=== PATIENT | female | born 1980 | race Caucasian/White ===

== ENCOUNTER → 2018-05-15 | Outpatient (CLI) | payer OTHER | END | disposition home or self-care (01) | LOC: KCIC CT 14:31 | DX: S06.0X9D Concussion with loss of consciousness of unspecified duration, subsequent encounter (principal); X58.XXXD Exposure to other specified factors, subsequent encounter | CPT/HCPCS: 70450 ==

== ENCOUNTER → 2018-06-30 | Outpatient (CLI) | payer OTHER | END | disposition home or self-care (01) | LOC: KCIC MRI 15:16 | DX: M54.2 Cervicalgia (principal); R51 Headache | CPT/HCPCS: 70551; 72141 ==

== ENCOUNTER → 2021-04-18 | Outpatient (CLI) | payer OTHER ==
[~2021-04-18] MED LIST: ANTI INFLAMATORY; BUTA1CAP57 PO; CALC500T54 PO; TRAM50TA PO
--- NOTE | 2021-04-18 13:08 | PDOC1 ---
INITIAL PAIN CONSULT DATE OF SERVICE: DOS: DATE: 04/18/21 TIME: 13:02 CHIEF COMPLAINT: Chief Complaint: Low back bilateral lower extremity pain HISTORY OF PRESENT ILLNESS: 41-year-old female presents history of pain in the low back bilateral lower extremities after lifting a heavy object at work February 14, 2021. Patient reports he lifted a heavy tray at work turned is admitted lifting to walk and felt a sharp pain in her low back this is become more noticeable over the next few days following the injury now is in the low back and bilateral lower extremities radiating the posterior gluteus posterior thighs posterior calves at times mostly in the back and hips and thighs. Patient reports is worse with walking standing changing positions describes as constant throbbing and shooting radiating worse with standing and walking is burning and aching the low back patient has had physical therapy and is currently undergoing physical therapy and has about 2 weeks left with this patient also said chiropractic treatment which was not significant helpful with the therapy was better at decreasing the pain but only moderately. Patient is taking tramadol which does decrease the pain by about 20% as well. Patient is been taking [id number] ibuprofen as well as Tylenol which also helps but only by about 20 to 30%. Patient reports her disability rating 0-10 10 being the worst is a 6 with family home responsibilities 8 with recreation for social activity 9 with occupation 7 with sexual behavior for self-care and life support activities. Patient did have plain films of the lumbar spine which were essentially normal has MRI scan scheduled for the first week of May. Patient reports no loss of motor function but easy fatigability of the lower extremities with standing and walking. Patient continues to work and is working 50+ hours per week. PAST MEDICAL HISTORY: PMH: No major medical problems or conditions she is aware of PREVIOUS SURGERIES: Past Surgical Hx: Hysterectomy 2018 CURRENT MEDICATIONS: Current Meds: Active Scripts Medications Dose Route/Sig Max Daily Dose Days Date Category Kqmrmu-Mchedflo-Ihtc 50-300-40 (Butalb/Acetaminophen/Caffeine) 1 Each Capsule 1 Each PO Q6-8HRS PRN 04/18/21 Reported [anti-inflamatory] PRN 04/18/21 Reported Calcium (Calcium Carbonate) 500 Mg Tab.chew 1 Tab PO DAILY 30 04/18/21 Reported Tramadol Hcl 50 Mg Tablet 50 Mg PO DAILY PRN 04/18/21 Reported ALLERGIES; Allergies: Coded Allergies: Penicillins (Verified Allergy, Severe, Anaphylaxis, 04/18/21) FAMILY HISTORY: Family Hx: No major medical problems or conditions that she is aware of. SOCIAL HISTORY: Social Hx: Patient does not emir alcohol smokes vapor cigarettes, uses marijuana once or twice a month patient is single lives locally in [place], [place] has 1 child living at home works as a local banquet manager. REVIEW OF SYSTEMS: ROS: Positive for those items mentioned in history of present illness, all systems ar e reviewed, otherwise negative ,and are complete full and well-documented on patient's chart. PHYSICAL EXAM: VS: Blood pressure is 109/72 pulse 75 respirations 18 temperature is 98.6 F height is 5 foot 1 his weight is 107 pounds PE: PHYSICAL EXAMINATION: GENERAL: The patient is awake, alert, oriented, appropriate, very pleasant demeanor HEENT: Shows normocephalic, atraumatic. Extraocular movements are intact and symmetrical. Oral cavity: Mucous membranes moist and pink. Dentition is intact. NECK: Shows anterior throat supple without palpable lymphadenopathy noted. Swallow reflex symmetrical. CHEST: Shows normal on inspection. Breath sounds are clear bilaterally, no rales rhonchi wheezes auscultated. HEART: Shows S1, S2 clear. No murmurs auscultated. ABDOMEN: Soft, nontender, nondistended, flat. No palpable organomegaly is noted. No rebound or guarding demonstrated. BACK: Shows spine grossly in the midline. Normal-appearing cervical lordotic cu rvature. There is normal-appearing thoracic kyphosis, some minor flattening of the lumbar lordotic curvature. Lumbar paraspinous muscles show symmetrical on inspection, on palpation shows some moderate tenderness diffusely throughout the upper, middle and lower distribution of the paraspinous muscles bilaterally and also into the lower thoracic paraspinous musculature, firm and tender, but without specific trigger points, without radiation of pain. The patient has good rotational motion of the lumbar spine, both laterally as well as extension and flexion without significant difficulty. No tenderness over the spinous processes, sacrum or sacroiliac regions. EXTREMITIES: Lower extremities show deep tendon reflexes 2 in the patellar and tendo calcaneus tendons. Motor exam is 4 on a scale of 5 with right dorsiflexion, extension, quadriceps and hamstring flexion and 4/5 on the left. Peripheral pulses are 1+ posterior tibial. No peripheral edema is noted bilaterally. Lower extremities are warm and dry to touch, equal in color and appearance. Straight leg raise noted to be positive bilaterally approximately 40 degrees, decreased with knee flexion. Gaenslen's and Golden's maneuvers are negative bilaterally. The patient is able to stand, stand on toes without difficulty or loss of balance, walks with a normal-appearing gait does not appear to favor the right or left lower extremity significantly is not using any assistive devices to ambulate. SKIN: Shows warm and dry, good turgor. No edema. No sores, rashes or bruising throughout. IMPRESSION: Impression: 41-year-old female with recent history of injury while at work February 14, 2021 with low back and bilateral lower extremity pain and radicular fashion. Plain films as noted Plan: Options were discussed with the patient including conservative medical management continued physical therapies and interventional techniques. As patient is having MRI scan done first week of May we will wait to see the results of this and patient will finish her physical therapy as currently prescribed. If still significantly painful with radicular symptoms we will have her return for lumbar epidural steroid injection at that time. Patient will wait for preauthorization and once obtained we will plan on translaminar approach L5-S1 lumbar epidural steroid injection with fluoroscopic guidance. In the meantime patient will continue with stretching strength exercise as well as oral analgesics as currently. ANTON SHELL MD April 18, 2021 13:08
== END | disposition home or self-care (01) ==
LOC: PNCL 09:22
PROVIDERS: ATTEND Anesthesiology
DX: M54.5 Low back pain (principal); M79.605 Pain in left leg; M79.604 Pain in right leg; Z79.899 Other long term (current) drug therapy; Z88.0 Allergy status to penicillin
CPT/HCPCS: G0463

== ENCOUNTER 2021-08-21 12:43 | Emergency (ER) | payer OTHER ==
[~2021-08-21] VITALS: Ht 152.4 cm; Wt 46.7 kg
--- NOTE | 2021-08-21 13:17 | PHYS DOC ---
Past Medical History Past Surgical History: Hysterectomy General Adult EDM: Chief Complaint: CHEST PAIN HPI: HPI: Patient is a 41 year old female who recently tested positive for Covid on 08/11 who presents with 4 days of hemoptysis and chest discomfort Initially with cough, fever, chills approximately 1 day prior to testing positive. Chest discomfort is right-sided, pleuritic. Now with a slight burning sensation in the anterior chest. No chance of being given hysterectomy. Does use tobacco via vape pen. No estrogen-containing medications. No lower extremity edema, redness, or pain. No history of DVT. Not on blood thinners. Review of Systems: Review of Systems: Constitutional: Denies fever or chills. [] Eyes: Denies change in visual acuity. [] HENT: Denies nasal congestion or sore throat. [] Respiratory: Reports cough and shortness of breath and hemoptysis [] Cardiovascular: For chest pain. Denies edema. [] GI: Denies abdominal pain, nausea, vomiting, bloody stools or diarrhea. [] : Denies dysuria. [] Musculoskeletal: Denies back pain or joint pain. [] Integument: Denies rash. [] Neurologic: Denies headache, focal weakness or sensory changes. [] Endocrine: Denies polyuria or polydipsia. [] Lymphatic: Denies swollen glands. [] Psychiatric: Denies depression or anxiety. [] Heart Score: C/O Chest Pain: Yes HEART Score for Chest Pain: HEART Score for Chest Pain Response (Comments) Value History Slighlty/Non-Suspicious 0 ECG Normal 0 Age < 45 0 Risk Factors No Risk Factors 0 Total 0 Risk Factors: Risk Factors: DM, Current or recent (<one month) smoker, HTN, HLP, family history of CAD, obesity. Risk Scores: Score 0 - 3: 2.5% MACE over next 6 weeks - Discharge Home Score 4 - 6: 20.3% MACE over next 6 weeks - Admit for Clinical Observation Score 7 - 10: 72.7% MACE over next 6 weeks - Early Invasive Strategies Allergies: Allergies: Allergies Coded Allergies Type Severity Reaction Last Updated Verified Penicillins Allergy Severe Anaphylaxis 04/18/21 Yes Physical Exam: PE: Constitutional: Well developed, well nourished, no acute distress, non-toxic appearance. [] HENT: Normocephalic, atraumatic, bilateral external ears normal, oropharynx moist, no oral exudates, nose normal. [] Eyes: PERRLA, EOMI, conjunctiva normal, no discharge. [] Neck: Normal range of motion, no tenderness, supple, no stridor. [] Cardiovascular:Heart rate regular rhythm, no murmur [] Lungs & Thorax: Normal work of breathing. Crackles in bilateral lung cardona. [] Abdomen: Bowel sounds normal, soft, no tenderness, no masses, no pulsatile masses. [] Skin: Warm, dry, no erythema, no rash. [] Back: No tenderness, no CVA tenderness. [] Extremities: No tenderness, no cyanosis, no clubbing, ROM intact, no edema. [] Neurologic: Alert and oriented X 3, normal motor function, normal sensory function, no focal deficits noted. [] Psychologic: Affect normal, judgement normal, mood normal. [] EKG: EKG: Sinus arrhythmia. Rate 69. [] Normal intervals. QTc 428. Right axis sissy ation. No acute ischemic changes. Radiology/Procedures: Radiology/Procedures: [] Impression: [facility] [address] [place] [address] IMAGING REPORT Signed PATIENT: KAYLEN KRAFT AACCOUNT: [id number] : 1980 LOCATION: ER AGE: 41 SEX: F EXAM STATUS: REG ER ORD. PHYSICIAN: MANUEL VILLAREAL MD REASON: COVID, CHEST PAIN, HEMOPTYSIS. R/O PE. PROCEDURE: CT ANGIOGRAPHY CHEST EXAMINATION: CT Chest With IV contrast INDICATION:41 years, Female, Covid 19 positive, chest pain, dizziness, evaluate for pulmonary embolism.. COMPARISON: None. TECHNIQUE: Spiral CTA was obtained from the jugular notch through the posterior costophrenic recess. 3-D MIPS, sagittal and coronal reformats were obtained. Exposure: One or more of the following individualized dose reduction techniques were utilized for this examination: 1. Automated exposure control 2. Adjustment of the mA and/or kV according to patient size 3. Use of iterative reconstruction technique. FINDINGS: LUNGS/PLEURA: Central airways are patent. Multifocal patchy groundglass opacities in bilateral lower lobes and lesser extent in the right middle lobe and lingula. No pleural effusion or pneumothorax. No suspicious pulmonary nodule. MEDIASTINUM: No pathologic mediastinal or hilar adenopathy. Prominent bilateral hilar lymph nodes, likely reactive. The thoracic aorta and pulmonary arteries are normal in caliber. No evidence of pulmonary embolism. The heart is normal in size. No pericardial effusion. No detectable calcified coronary atherosclerosis. The visualized thyroid and the esophagus are unremarkable. AXILLA/SOFT TISSUE: No supraclavicular or axillary adenopathy. Regional soft tissues are within normal limits. UPPER ABDOMEN: The visualized upper abdomen appears unremarkable. BONES: No evidence of acute fractures or aggressive osseous lesions. IMPRESSION: 1. No evidence of pulmonary embolism. 2. Multifocal patchy groundglass opacities predominantly in bilateral lower lobes, consistent with known COVID 19 pneumonia. Electronically signed by: Hardik Walters MD (08/21/2021 2:41 PM) [facility] DICTATED and SIGNED BY: HARDIK WALTERS MD DATE: 08/21/21 [id number] 0 Course & Med Decision Making: Course & Med Decision Making Pertinent Labs and Imaging studies reviewed. (See chart for details) Patient a 41-year-old female who tested positive for Covid on 08/11 who presents with 4 days of chest pain and hemoptysis. Sent over from urgent care for concern for PE. Vital signs are stable. Satting well on room air. We will obtain CTA of chest, troponin, BMP, EKG. 1317 No PE. Lung parenchyma consistent with COVID-19 pneumonia. Troponin negative. BMP unremarkable. EKG nonischemic. Likely pleuritic pain from COVID-19 pneumonia. Vital signs remained stable. Safe for discharge at this time. [address] Disclaimer: [place] Disclaimer: This electronic medical record was generated, in whole or in part, using a voice recognition dictation system. Departure Departure Impression: Primary Impression: Pneumonia due to COVID-19 virus Disposition: HOME / SELF CARE / HOMELESS Condition: STABLE Referrals: SEEMA FERREIRA (PCP) Additional Instructions: There was no sign of blood clot on your CT scan. It did show some small areas in the bottoms of your lungs concerning for pneumonia from your Covid infection. Fortunately, your vital signs and oxygen levels were very good today. Please continue to self isolate until your 10 days from symptom onset and have at least 3 days with improving symptoms. If you have worsening shortness of breath you can return to the emergency department for reevaluation at any time. Otherwise please schedule follow-up appointment for your PCP after you recover. MANUEL VILLAREAL MD Aug 21, 2021 13:17
[2021-08-21 13:53] LABS: CREATININE 0.8 mg/dL (0.6-1.0); GFR 79.4; POTASSIUM 4.1 mmol/L (3.5-5.1)
[2021-08-21] MEDS ORDERED: CONTRAST GIVEN. MC PRN (14:15)
[2021-08-21] MEDS: IOHEXOL 350 MG/ML 100 ML VIAL. IV ONE (14:28)
--- NOTE | 2021-08-21 14:43 | RAD ---
EXAMINATION: CT Chest With IV contrast INDICATION:41 years, Female, Covid 19 positive, chest pain, dizziness, evaluate for pulmonary embolis m.. COMPARISON: None. TECHNIQUE: Spiral CTA was obtained from the jugular notch through the posterior costophrenic recess. 3-D MIPS, sagittal and coronal reformats were obtained. Exposure: One or more of the following individualized dose reduction techniques were utilized for thi s examination: 1. Automated exposure control 2. Adjustment of the mA and/or kV according to patient size 3. Use of iterative reconstruction technique. FINDINGS: LUNGS/PLEURA: Central airways are patent. Multifocal patchy groundglass opacities in bilateral lower lobes and lesser extent in the right middle lobe and lingula. No pleural effusion or pneumothorax. No suspicious pulmonary nodule. MEDIASTINUM: No pathologic mediastinal or hilar adenopathy. Prominent bilateral hilar lymph nodes, li yonathan reactive. The thoracic aorta and pulmonary arteries are normal in caliber. No evidence of pulmon damaso embolism. The heart is normal in size. No pericardial effusion. No detectable calcified coronary atherosclerosis. The visualized thyroid and the esophagus are unremarkable. AXILLA/SOFT TISSUE: No supraclavicular or axillary adenopathy. Regional soft tissues are within graham l limits. UPPER ABDOMEN: The visualized upper abdomen appears unremarkable. BONES: No evidence of acute fractures or aggressive osseous lesions. IMPRESSION: 1. No evidence of pulmonary embolism. 2. Multifocal patchy groundglass opacities predominantly in bilateral lower lobes, consistent with k nown COVID 19 pneumonia. Electronically signed by: Ismael Walters MD (08/21/2021 2:41 PM) [facility]
--- NOTE | 2021-08-21 15:38 | EKG ---
[facility] [address] [place] [address] Test Date: 2021-08-21 Test Time: 13:16:49 Pat Name: KAYLEN KRAFT Department: Room: Gender: F Loading [employer]: : 1980 Requested By: MANUEL VILLAREAL Order Number: [id number] Reading MD: Measurements Intervals [place] Rate: 69 P: 52 PA: 132 QRS: 92 QRSD: 86 T: 69 QT: 398 QTc: 428 Interpretive Statements SINUS RHYTHM RIGHTWARD AXIS NO SPECIFIC ECG ABNORMALITIES RI6.01 No previous ECG available for comparison
[2021-08-21 15:59] VITALS: BP 103/67
== END 2021-08-21 16:20 | disposition home or self-care (01) ==
LOC: ER 12:43
DX: U07.1 COVID-19 (principal); J12.82 Pneumonia due to coronavirus disease 2019; Z88.0 Allergy status to penicillin
CPT/HCPCS: 36415; 71275; 80048; 84484; 93005; 99285; Q9967

== ENCOUNTER 2021-09-19 10:40 | Emergency (ER) | payer OTHER ==
[~2021-09-19] VITALS: Ht 154.9 cm; Wt 47.0 kg
[2021-09-19 11:53] VITALS: BP 117/76
[2021-09-19] MEDS ORDERED: KETOROLAC 30 MG/ML VIAL. IVP ONE (12:15)
[2021-09-19 12:22] LABS: BASO # 0.1 x10^3/uL (0.0-0.2); BASO % 1 % (0-3); EOS # 0.1 x10^3/uL (0.0-0.7); EOS % 1 % (0-3); HEMATOCRIT 43.4 % (36.0-47.0); HEMOGLOBIN 14.8 g/dL (12.0-15.5); LYMPH # 1.5 x10^3/uL (1.0-4.8); LYMPH % 24 % (24-48); MEAN CORPUSCULAR HEMOGLOBIN 30 pg (25-35); MEAN CORPUSCULAR HGB CONC 34 g/dL (31-37); MEAN CORPUSCULAR VOLUME 87 fL (79-100); MONO # 0.5 x10^3/uL (0.0-1.1); MONO % 8 % (0-9); NEUT # 3.9 x10^3/uL (1.8-7.7); NEUT % 66 % (31-73); PLATELET COUNT 265 x10^3/uL (140-400)
[2021-09-19 12:32] LABS: CALCIUM 8.3 mg/dL (8.5-10.1); CREATININE 0.8 mg/dL (0.6-1.0); GFR 79.4; POTASSIUM 3.8 mmol/L (3.5-5.1)
[2021-09-19 12:38] LABS: ALBUMIN 3.7 g/dL (3.4-5.0); ALBUMIN/GLOBULIN RATIO 1.2 (1.0-1.7); TOTAL BILIRUBIN 0.2 mg/dL (0.2-1.0); TOTAL PROTEIN 6.8 g/dL (6.4-8.2)
--- NOTE | 2021-09-19 12:42 | RAD ---
Single view of the chest. 09/19/2021 12:22 PM Indication: Reason: Short of breath, PUI / Spl. Instructions: / History: Comparison: CT angiography of the chest August 21, 2021 Findings: There is no focal consolidation. There is no pleural effusion or pneumothorax. The cardiome diastinal silhouette and pulmonary vasculature are within normal limits. No acute osseous abnormaliti es are seen. Impression: No evidence of acute cardiopulmonary process. Electronically signed by: Shay Frey MD (09/19/2021 12:40 PM) [id number]
--- NOTE | 2021-09-19 14:06 | PHYS DOC ---
Past Medical History Additional Past Medical Histor: covid 08/11/2021 Past Surgical History: Hysterectomy Smoking Status: Former Smoker Additional Information: vapes Alcohol Use: None Social History Narrative: hx of mj General Adult EDM: Chief Complaint: SHORTNESS OF BREATH HPI: HPI: Patient is a 41-year-old female presents to the emergency department with chief complaint of ongoing COVID-19 virus signs and symptoms after being diagnosed on 08/11/2021. Patient is worried she may have a blood clot in her lung as she has heard this is a side effect of the COVID-19 virus. Patient denies receiving the Covid virus vaccine. Patient denies other physical complaints or physical concerns. Patient reports last menstrual cycle August 2018 since she has had her partial hysterectomy. Review of Systems: Review of Systems: 14 body systems of review of systems have been reviewed. See HPI for pertinent positives and negative responses, otherwise all other systems are negative, nonpertinent or noncontributory. Constitutional: Negative except as outlined in HPI above. Skin: Negative except as outlined in HPI above. Eyes: Negative except as outlined in HPI above. HENT: Negative except as outlined in HPI above. Respiratory: Negative except as outlined in HPI above. Cardiovascular: Negative except as outlined in HPI above. GI: Negative except as outlined in HPI above. : Negative except as outlined in HPI above. Musculoskeletal: Negative except as outlined in HPI above. Integument: Negative except as outlined in HPI above. Neurologic: Negative except as outlined in HPI above. Endocrine: Negative except as outlined in HPI above. Lymphatic: Negative except as outlined in HPI above. Psychiatric: Negative except as outlined in HPI above. Heart Score: C/O Chest Pain: No Risk Factors: Risk Factors: DM, Current or recent (<one month) smoker, HTN, HLP, family history of CAD, obesity. Risk Scores: Score 0 - 3: 2.5% MACE over next 6 weeks - Discharge Home Score 4 - 6: 20.3% MACE over next 6 weeks - Admit for Clinical Observation Score 7 - 10: 72.7% MACE over next 6 weeks - Early Invasive Strategies Current Medications: Current Medications Medications (Trade) Dose Ordered Sig/Lizette Start Time Stop Time Status Last Admin Dose Admin Ketorolac Tromethamine (Toradol 30mg Vial) 30 mg 1X ONCE 09/19/21 12:15 09/19/21 12:16 DC 09/19/21 12:59 30 MG Allergies: Allergies: Allergies Coded Allergies Type Severity Reaction Last Updated Verified Penicillins Allergy Severe Anaphylaxis 04/18/21 Yes Physical Exam: PE: Constitutional: Well developed, well nourished, no acute distress, non-toxic appearance. 41-year-old female in no apparent distress. HENT: Normocephalic, atraumatic. Patient speaking in normal voice tones, no lymphadenopathy of the head or neck appreciated, oropharynx moist, pink, no deep tissue infectious process appreciated. Eyes: Conjunctiva normal, no discharge. Neck: Normal range of motion, no stridor. Cardiovascular: No cyanosis appreciated, distal cap refill less than 2 seconds. Lungs & Thorax: Patient is in no respiratory distress, no audible adventitious lung sounds appreciated. Lung sounds clear to auscultation all lung cardona Abdomen: Nontender, no abnormalities noted. Skin: Warm, dry, no erythema, no rash. Back: No tenderness, no deformities. Extremities: No tenderness, no cyanosis, no clubbing, ROM intact, no edema. Neurologic: Alert and oriented X 3, normal motor function, normal sensory function, no focal deficits noted. Psychologic: Affect normal, judgement normal, mood normal. Current Patient Data: Labs: Laboratory Tests Test 09/19/21 11:43 09/19/21 12:12 09/19/21 12:50 Bedside Urine HCG, Qualitative Hcg negative White Blood Count 6.0 x10^3/uL Red Blood Count 5.00 x10^6/uL Hemoglobin 14.8 g/dL Hematocrit 43.4 % Mean Corpuscular Volume 87 fL Mean Corpuscular Hemoglobin 30 pg Mean Corpuscular Hemoglobin Concent 34 g/dL Red Cell Distribution Width 14.0 % Platelet Count 265 x10^3/uL Neutrophils (%) (Auto) 66 % Lymphocytes (%) (Auto) 24 % Monocytes (%) (Auto) 8 % Eosinophils (%) (Auto) 1 % Basophils (%) (Auto) 1 % Neutrophils # (Auto) 3.9 x10^3/uL Lymphocytes # (Auto) 1.5 x10^3/uL Monocytes # (Auto) 0.5 x10^3/uL Eosinophils # (Auto) 0.1 x10^3/uL Basophils # (Auto) 0.1 x10^3/uL D-Dimer (Tana) < 0.27 ug/mlFEU Sodium Level 139 mmol/L Potassium Level 3.8 mmol/L Chloride Level 101 mmol/L Carbon Dioxide Level 32 mmol/L Anion Gap 6 Blood Urea Nitrogen 12 mg/dL Creatinine 0.8 mg/dL Estimated GFR (Cockcroft-Gault) 79.4 BUN/Creatinine Ratio 15 Glucose Level 93 mg/dL Lactic Acid Level 0.6 mmol/L Calcium Level 8.3 mg/dL Total Bilirubin 0.2 mg/dL Aspartate Amino Transf (AST/SGOT) 13 U/L Alanine Aminotransferase (ALT/SGPT) 28 U/L Alkaline Phosphatase 52 U/L Total Protein 6.8 g/dL Albumin 3.7 g/dL Albumin/Globulin Ratio 1.2 SARS-CoV-2 Antigen (Rapid) Negative Current Medications Medications (Trade) Dose Ordered Sig/Lizette Route PRN Reason Start Time Stop Time Status Last Admin Dose Admin Ketorolac Tromethamine (Toradol 30mg Vial) 30 mg 1X ONCE IVP 09/19/21 12:15 09/19/21 12:16 DC 09/19/21 12:59 Laboratory Tests Test 09/19/21 11:43 09/19/21 12:12 09/19/21 12:50 POC Urine HCG, Qualitative Hcg negative (Negative) White Blood Count 6.0 x10^3/uL (4.0-11.0) Red Blood Count 5.00 x10^6/uL (3.50-5.40) Hemoglobin 14.8 g/dL (12.0-15.5) Hematocrit 43.4 % (36.0-47.0) Mean Corpuscular Volume 87 fL (79-100) Mean Corpuscular Hemoglobin 30 pg (25-35) Mean Corpuscular Hemoglobin Concent 34 g/dL (31-37) Red Cell Distribution Width 14.0 % (11.5-14.5) Platelet Count 265 x10^3/uL (140-400) Neutrophils (%) (Auto) 66 % (31-73) Lymphocytes (%) (Auto) 24 % (24-48) Monocytes (%) (Auto) 8 % (0-9) Eosinophils (%) (Auto) 1 % (0-3) Basophils (%) (Auto) 1 % (0-3) Neutrophils # (Auto) 3.9 x10^3/uL (1.8-7.7) Lymphocytes # (Auto) 1.5 x10^3/uL (1.0-4.8) Monocytes # (Auto) 0.5 x10^3/uL (0.0-1.1) Eosinophils # (Auto) 0.1 x10^3/uL (0.0-0.7) Basophils # (Auto) 0.1 x10^3/uL (0.0-0.2) D-Dimer (Tana) < 0.27 ug/mlFEU Sodium Level 139 mmol/L (136-145) Potassium Level 3.8 mmol/L (3.5-5.1) Chloride Level 101 mmol/L (98-107) Carbon Dioxide Level 32 mmol/L (21-32) Anion Gap 6 (6-14) Blood Urea Nitrogen 12 mg/dL (7-20) Creatinine 0.8 mg/dL (0.6-1.0) Estimated GFR (Cockcroft-Gault) 79.4 BUN/Creatinine Ratio 15 (6-20) Glucose Level 93 mg/dL (70-99) Lactic Acid Level 0.6 mmol/L (0.4-2.0) Calcium Level 8.3 mg/dL (8.5-10.1) L Total Bilirubin 0.2 mg/dL (0.2-1.0) Aspartate Amino Transferase (AST) 13 U/L (15-37) L Alanine Aminotransferase (ALT) 28 U/L (14-59) Alkaline Phosphatase 52 U/L (46-116) Total Protein 6.8 g/dL (6.4-8.2) Albumin 3.7 g/dL (3.4-5.0) Albumin/Globulin Ratio 1.2 (1.0-1.7) SARS-CoV-2 Antigen (Rapid) Negative (NEGATIVE) Laboratory Tests 09/19/21 12:12 Laboratory Tests 09/19/21 12:12 Vital Signs: Vital Signs Date Time Temp Pulse Resp B/P (MAP) Pulse Ox O2 Delivery O2 Flow Rate FiO2 09/19/21 11:53 98.5 81 16 117/76 (90) 100 Room Air 98.5 EKG: EKG: [] Radiology/Procedures: Radiology/Procedures: PATIENT: KAYLEN KRAFT AACCOUNT: [id number] : 1980 LOCATION: ER AGE: 41 SEX: F EXAM STATUS: PRE ER ORD. PHYSICIAN: JANUSZ BRYANT APRN REASON: Short of breath, PUI PROCEDURE: CHEST AP ONLY Single view of the chest. 09/19/2021 12:22 PM Indication: Reason: Short of breath, PUI / Spl. Instructions: / History: Comparison: CT angiography of the chest August 21, 2021 Findings: There is no focal consolidation. There is no pleural effusion or pneumothorax. The cardiomediastinal silhouette and pulmonary vasculature are within normal limits. No acute osseous abnormalities are seen. Impression: No evidence of acute cardiopulmonary process. Electronically signed by: Shay Frey MD (09/19/2021 12:40 PM) [id number] Course & Med Decision Making: Course & Med Decision Making Pertinent Labs and Imaging studies reviewed. (See chart for details) 49-year-old female, vital signs reviewed, presents to the emergency department concerning ongoing symptoms of the COVID-19 virus. Physical examination on remarkable however with patient's complaint of symptoms will order D-dimer, chest x-ray, lab work Patient's D-dimer nonconcerning for clotting concerns, this x-ray nonconcerning, Covid testing negative, all labs within normal limits. Discussed findings with patient who states she feels much better knowing that her labs are normal, states her symptoms seem to have resolved and wonders if she had some mild back pain from coughing too hard. Patient states she does not need any prescription medications for pain and wishes to go home at this time. Discussed with the patient all findings and diagnostic testing as well as the need to follow-up with their primary care provider for further evaluation and treatment or return to the ED if any new or worsening symptoms. Strict return precautions were also discussed at length, the patient voiced understanding and agreement with the discharge planning. The patient was nontoxic in appearance, in no apparent distress, and hemodynamically stable at the time of disposition. Dragon Disclaimer: Dragon Disclaimer: This electronic medical record was generated, in whole or in part, using a voice recognition dictation system. Departure Departure Impression: Primary Impression: Back pain Qualified Codes: M54.6 - Pain in thoracic spine Disposition: HOME / SELF CARE / HOMELESS Condition: GOOD Referrals: SEEMA FERREIRA (PCP) Patient Instructions: Back Pain, Adult Additional Instructions: You were seen today in the emergency department for back pain and other symptoms with aches and pains related to your recent Covid virus infection. An extensive work-up was done today in the emergency department, your COVID-19 virus rapid test is negative, your lab work did not show any concerning signs of infectious process or electrolyte imbalance or anemia. Your chest x-ray did not show any concerning signs of pneumonia or other respiratory disease patterns. I believe your back pain is most likely a strain from the coughing you experience during your recent COVID-19 virus infection. Please take [id number] Tylenol and/or Motrin for ongoing discomfort. Follow-up with your primary care physician soon. Thank you for visiting our Emergency Department. It was a pleasure taking care of you today in the emergency department and we appreciate you trusting us with your care. If any additional problems come up don't hesitate to return to visit us. Please follow up with your primary care provider so they can plan additional care if needed and know about the problem that you had. If symptoms worsen come back to the Emergency Department. Any concerning symptoms that start such as chest pain, shortness of air, weakness or numbness on one side of the body, running high fevers or any other concerning symptoms return to the ER. EMERGENCY DEPARTMENT GENERAL DISCHARGE INSTRUCTIONS Thank you for coming to [facility] Emergency Department (ED) today and trusting us with you care. We trust that you had a positive experience in our Emergency Department. If you wish to speak to the department management, you may call the Director at [phone]. YOUR FOLLOW UP INSTRUCTIONS ARE FOLLOWS: 1. Do you have a private Doctor? If you do not have a private doctor, please ask for a resource list of physicians or clinics that may be able to assist you with follow up care. 2. The Emergency Physicain has interpreted your x-rays. The X-Ray specialist will also review them. If there is a change in the findings, you will be notified in 48 hours when at all possible. 3. A lab test or culture has been done, your results will be reviewed and you will be notified if you need a change in treatment. ADDITIONAL INSTRUCTIONS AND INFORMATION: 1. Your care today has been supervised by a physician who is specially trained in emergency care. Many problems require more than one evaluation for a complete diagnosis and treatment. We recommend that you schedule your follow up appointment as recommended to ensure complete treatment of you illness or injury. If you are unable to obtain follow up care and continue to have a problem, or if your condition worsens, we recommend that you return to the ED. 2. We are not able to safely determine your condition over the phone nor are we able to give sound medical advice over the phone. For these safety reasons, if you call for medical advice we will ask you to come to the ED for further evaluation. 3. If you have any questions regarding these discharge instructions please call the ED at [phone]. SAFETY INFORMATION: In the interest of safety, wellness, and injury prevention; we encourage you to wear your sealbelt, if you smoke; quite smoking, and we encourage family to use a protective helmet for bicycling and other sporting events that present an increased risk for head injury. IF YOUR SYMPTOMS WORSEN OR NEW SYMPTOMS DEVELOP, OR YOU HAVE CONCERNS ABOUT YOUR CONDITION; OR IF YOUR CONDITION WORSENS WHILE YOU ARE WAITING FOR YOUR FOLLOW UP APPOINTMENT; EITHER CONTACT YOUR PRIMARY CARE DOCTOR, THE PHYSICIAN WHOSE NAME AND NUMBER YOU WERE GIVEN, OR RETURN TO THE ED IMMEDIATELY. JANUSZ BRYANT APRN Sep 19, 2021 14:06
--- NOTE | 2021-09-20 16:34 | NUR ---
IP: Attempted to contact pt concerning covid results. No answer, left a voicemail to return the call.
== END 2021-09-19 14:24 | disposition home or self-care (01) ==
LOC: ER 10:40
DX: M54.6 Pain in thoracic spine (principal); Z20.822 Contact with and (suspected) exposure to COVID-19; Z90.710 Acquired absence of both cervix and uterus; Z87.891 Personal history of nicotine dependence; Z88.0 Allergy status to penicillin
CPT/HCPCS: 36415; 71045; 80053; 81025; 83605; 85025; 85379; 87426; 96374; 99284; J1885; U0003; U0005